=== PATIENT | male | born 1960 | race Caucasian/White ===

== ENCOUNTER 2020-06-09 01:55 | Outpatient (CLI) | payer OTHER, SELFPAY ==
[2020-06-09 18:53] LABS: SARS-CoV-2 RNA PCR Negative
== END 2020-06-09 01:56 | disposition home or self-care (01) ==
LOC: ANHCOVIDDT 01:56
PROVIDERS: PCP Internal Medicine; Visit Provider Internal Medicine Gastroenterology
DX: Z01.812 Encounter for preprocedural laboratory examination (principal); Z20.828 Contact with and (suspected) exposure to other viral communicable diseases
CPT/HCPCS: 87635; C9803; U0003

== ENCOUNTER 2020-06-11 01:08 | Day surgery (SDC) | payer OTHER, SELFPAY ==
[2020-06-01 15:20] VITALS: BMI 29.1
[2020-06-11 07:09] VITALS: BP 132/88; PULSE 87; RESP 18; TEMP 36.6; O2SAT 99
[2020-06-11] MEDS: LACTATED RINGERS 1,000 ML 150 ML IV CONT (07:22)
--- NOTE | 2020-06-11 07:43 | P.PNAN_ITS ---
Anes - Initial Pre Proc Eval Procedure: Operation Date: 06/11/20 08:00 Proposed Procedures p Esophagogastroduodenoscopy & Colonoscopy - Ramses Parham MD Date/Time: 06/11/20 07:43 Surgeon: Ramses Parham MD Pre Op Diagnosis: Gi Bleed, melena Patient Data Age: 60 Gender: M Height: 5 ft 10.5 in Weight: 93.2 kg Last Vital Signs Temp 97.8 F 06/11/20 07:09 Pulse 87 06/11/20 07:09 Resp 18 06/11/20 07:09 BP 132/88 06/11/20 07:09 Pulse Ox 99 06/11/20 07:09 Allergies Allergy/AdvReac Type Severity Reaction Status Date / Time No Known Allergies Allergy Unverified 06/01/20 15:16 Home Medications Medication Instructions Recorded Confirmed Type atorvastatin 40 mg PO HS 06/01/20 06/01/20 History hydrochlorothiazide 12.5 mg PO DAILY 06/01/20 06/01/20 History nitroglycerin See Rx Instructions .ROUTE .COMPLEX 06/01/20 06/01/20 History pantoprazole 40 mg PO DAILY 06/01/20 06/11/20 History Patient hx anesthesia problems: none Family hx anesthesia problems: none [facility] Past Medical History Medical History (Updated 06/11/20 @ 07:40 by Lazaro Andrade MD) Hyperlipidemia Hypertension Peripheral vascular disease had right CEA 2-20 TIA (transient ischemic attack) Social History Social History Alcohol intake: current Anes - Eval Final PreProcedure Day of Procedure 06/11/20 07:43 Patient weight: overweight Heart: regular rate and rhythm Lungs: clear to auscultation Airway: Mallampati scale class II Neurological: alert and oriented Last oral intake: >/= 8 hours ASA classification: III Emergent: no Anesthetic plan: proceed Anesthesia type and monitoring: general GIVS and standard monitoring Informed Consent: The patient's anesthetic plan and its attendant risks and benefits were discussed with the patient/family/POA. Questions were solicited and answers provided to the satisfaction of the patient/family/POA.
--- NOTE | 2020-06-11 07:54 | WPDGICN ---
Assessment and Plan Assessment and plan (1) GI bleeding: Code(s): K92.2 - Gastrointestinal hemorrhage, unspecified Status: Acute Assessment and Plan: Patient has had melenic stools but also some description of bright red blood per rectum. Plan is to evaluate more thoroughly with both colonoscopy an EGD. Will continue high-fiber diet Protonix until this is accomplished. Further recommendations will be given after endoscopy. GI Consult Note Consult date/time: 06/11/20 07:54 HPI: Christian Weber is a 60 year old male Seen in evaluation at the request of Dr. Sandoval Ramos. Patient has noticed recent blood in his stools. It became somewhat blackish in nature. Stools have essentially return to normal over the last several weeks. He has had some left lower quadrant pain. States he typically has 2-3 bowel movements a day. Patient previously was on Plavix which is now on hold he has been treated with Protonix empirically. Patient has never had a previous colonoscopy. His family history is noncontributory. Review of Systems Review of Systems: All systems reviewed & are unremarkable except as noted in HPI and below PMFSH Past Medical History Medical History Hyperlipidemia Hypertension Peripheral vascular disease had right CEA 2-20 TIA (transient ischemic attack) Social History Social History Alcohol intake: current Meds Home Medications and Allergies Home Medications Medication Instructions Recorded Confirmed Type atorvastatin 40 mg PO HS 06/01/20 06/01/20 History hydrochlorothiazide 12.5 mg PO DAILY 06/01/20 06/01/20 History nitroglycerin See Rx Instructions .ROUTE .COMPLEX 06/01/20 06/01/20 History pantoprazole 40 mg PO DAILY 06/01/20 06/11/20 History Allergies Allergy/AdvReac Type Severity Reaction Status Date / Time No Known Allergies Allergy Unverified 06/01/20 15:16 Vital Signs Vital Signs - 24 hr 06/11/20 07:09 Temperature 97.8 F Pulse Rate 87 Respiratory Rate 18 Blood Pressure 132/88 Pulse Oximetry 99 Exam Narrative: Exam Narrative: Physical exam reveals patient to be alert. Vital signs stable. HEENT exam unremarkable. Lungs are clear to auscultation and percussion. Heart is without murmur or extra sounds. Abdominal exam bowel sounds are present soft nontender with no organomegaly. Digital external rectal exam normal.
[2020-06-11 08:43] VITALS: BP 119/84; PULSE 76; RESP 20; O2SAT 99
[2020-06-11 08:53] VITALS: BP 133/88; PULSE 74; RESP 18; O2SAT 97
[2020-06-11 09:03] VITALS: BP 152/94; PULSE 72; RESP 20; O2SAT 100
== END 2020-06-11 09:20 | disposition home or self-care (01) ==
PROVIDERS: PCP Internal Medicine; Visit Provider Internal Medicine Gastroenterology
PROC: 0DJ08ZZ Inspection of Upper Intestinal Tract, Via Natural or Artificial Opening Endoscopic (ICD-10-PCS; CPT 43235; principal; 2020-06-11 08:00)
DX: K92.1 Melena (principal); D12.5 Benign neoplasm of sigmoid colon; K63.5 Polyp of colon; K57.30 Diverticulosis of large intestine without perforation or abscess without bleeding; K64.8 Other hemorrhoids; I10 Essential (primary) hypertension; E78.5 Hyperlipidemia, unspecified; I73.9 Peripheral vascular disease, unspecified; Z86.73 Personal history of transient ischemic attack (TIA), and cerebral infarction without residual deficits
CPT/HCPCS: 45385; 87081; 88305; J2704; J7120